=== PATIENT | female | born 1980 | race Asian ===

== ENCOUNTER 2019-03-20 14:48 | Emergency (ER) | payer OTHER ==
[~2019-03-20] VITALS: Ht 167.6 cm; Wt 90.7 kg
[~2019-03-20 14:48] MED LIST: ALDACTONE25 MG PO; AMOXIL 875 MG875 M1 PO; BENADRYL25 MG PO; NOHOMEMEDICATIONS; PREDNISONE 20 M20 M1 PO
[2019-03-20 14:53] VITALS: BP 137/84
== END 2019-03-20 15:18 | disposition home or self-care (01) ==
LOC: M.ERS 14:48
DX: J06.9 Acute upper respiratory infection, unspecified (principal); E28.2 Polycystic ovarian syndrome; Z90.49 Acquired absence of other specified parts of digestive tract